=== PATIENT | male | born 1995 | race Caucasian/White ===

== ENCOUNTER 2023-06-23 18:29 | Inpatient (IN) ==
[2023-06-23] MEDS ORDERED: ACETAMINOPHEN 1,000 MG/100 ML VIAL IV STA (19:14)
--- NOTE | 2023-06-23 19:18 | Emergency Department Note ---
Impression & Plan Seizure-like activity ED Provider Note HISTORY OF PRESENT ILLNESS: Patient is a 27-year-old male presenting with seizure-like activity. Patient is from [place] and is visiting town for the [employer] game. He reportedly was sitting on a stool and started staring off while talking to family and then started drooling out of the right side of his mouth. Family was able to lower him to the ground and he started having tonic-clonic seizure-like activity that lasted for around 5 minutes. His seizure stopped on its own. Family at bedside reports he only sees once but then was postictal. He is not currently on any antiepileptic medications. His last seizure was 4 weeks ago. He is scheduled for his first neurology appointment next month. He denies any recent changes in medications. Denies any fevers in the last week. Denies any chest pain or shortness of breath. On arrival to the ER, he reports he feels back to his normal self. He does have a slight headache at this time. Patient was reportedly incontinent of urine during the episode ROS: as above PHYSICAL EXAM: Constitutional: Patient appears in no acute distress. HENT: Head: Normocephalic and atraumatic. Eyes: EOMI, PERRL Mouth/Throat: Mucous membranes moist. Neck: Trachea midline. Neck supple. Cardiovascular: RRR, No murmurs, rubs or gallops. Intact distal pulses. Pulmonary/Chest: No respiratory distress. Breath sounds clear and equal bilaterally. No wheezes or rales. Abdominal: Abdomen soft, no tenderness, rebound or guarding. Musculoskeletal: No edema, tenderness or deformity noted. Skin: Warm and dry. No rash, erythema, pallor or cyanosis Psychiatric: Appropriate mood and affect for situation. Neurological: Alert and keenly responsive. CN II-XII grossly intact, moving all extremities equally and fully. MDM: - Vitals signs stable. - History obtained via patient and patient's aunt at bedside. Patient presents with seizure-like activity. Patient is from out of town visiting for the [employer] game. He does have a previous seizure activity history and had a seizure last month. He is not currently on any antiseizure medications. He is scheduled for his first neurology clinic appointment next month. He reportedly started staring off and drooling out of his right side of his mouth and was lowered to the ground when he then had seizure-like activity per his aunt. He seized for around 5 minutes and then his seizure broke on its own. He has a history of polycystic kidney disease. No reported changes in medications. No drug use. No recent falls or head injuries. On arrival to the ER, the patient is back to his baseline. He does not remember his seizure-like activity. - Chronic conditions affecting care: Seizures - Differential diagnoses include, but are not limited to: Electrolyte abnormality; intracranial hemorrhage; dysrhythmia; UTI; drug use - Order placed for continuous cardiac monitoring. At this time, monitor showed rate of 100 bpm with normal sinus rhythm, per my interpretation. - External medical records reviewed. EMS run sheet was reviewed. Patient was not given any medications prehospital. Fingerstick glucose was 103 for EMS - EKG reviewed by myself showed normal sinus rhythm. Rate 94 bpm. QTc 432. No acute ischemic changes. - Laboratory workup interpreted by myself showed normal WBC; stable electrolytes; elevated anion gap (15); normal troponin; negative alcohol - CXR negative for pneumonia, per my interpretation - While in the emergency department waiting for work-up, the patient did have a witnessed tonic-clonic seizure. He was given 2 mg of IV Ativan. He did appear to bite his tongue and had bloody drool from the left side of his mouth. He was taken to CT scan, where he then had another reported seizure and was given 1 mg of IV Ativan. - CT head wo contrast negative for intracranial hemorrhage, per my interpretation - Given patient's recurrent seizures in the ER, will admit to hospital for neurology consult and EEG. - Given 1g IV keppra in ER. - Discussion was had with clinical social worker about patient's case and need for admission - Hospitalist consulted for admission - [facility] ASSESSMENT AND PLAN: Diagnosis: Seizure-like activity Plan: Admit Past Med/Surg History Social History Smoking Status: Current every day smoker Tobacco Type: E-cigarettes / Vaping Preferred Language: Polish Feels Safe at Home: Yes Results & Data (ED) Vital Signs Vital Signs - 24 hr 06/23/23 18:39 06/23/23 18:39 06/23/23 18:39 Temperature 36.7 C Temperature Source Oral Pulse Rate 99 H Respiratory Rate 14 Blood Pressure 125/78 Blood Pressure Mean 93 Pulse Oximetry 96 Oxygen Delivery Method Room Air Room Air Room Air Sepsis New/Unexplained Change in Mental Status No Sepsis Action Taken by Nursing No Action Required 06/23/23 18:39 Temperature Temperature Source Pulse Rate 108 H Respiratory Rate Blood Pressure Blood Pressure Mean Pulse Oximetry Oxygen Delivery Method Sepsis New/Unexplained Change in Mental Status Sepsis Action Taken by Nursing Laboratory Data 06/23/23 18:41 06/23/23 18:41 Lab Results 06/23/23 06/23/23 06/23/23 Range/Units 18:41 19:49 20:01 WBC 10.00 (4.8-10.8) K/ul RBC 4.78 (4.70-6.10) M/uL Hgb 14.7 (14.0-18.0) g/dl Hct 42.2 (42.0-52.0) % MCV 88.3 (80.0-100.0) fL MCH 30.8 (25.0-34.0) pg MCHC 34.8 (32.0-36.0) g/dL RDW Std Deviation 37.2 (36.4-46.3) fL RDW Coeff of Jose 11.4 L (11.5-14.5) % Plt Count 213 (130-400) K/uL MPV 10.3 (9.4-12.4) fL Immature Gran % (Auto) 1.0 % Neut % (Auto) 88.6 % Lymph % (Auto) 6.3 % Roosevelt % (Auto) 3.3 % Eos % (Auto) 0.1 % Baso % (Auto) 0.7 % Neut # (Auto) 8.86 H (1.40-6.50) K/uL Lymph # (Auto) 0.63 L (1.20-3.40) K/uL Roosevelt # (Auto) 0.33 (0.11-0.59) K/uL Eos # (Auto) 0.01 (0.00-0.50) K/uL Baso # (Auto) 0.07 (0.00-0.20) K/uL Immature Gran # (Auto) 0.10 (0.01-0.20) K/uL PT 12.1 H (9.0-12.0) Seconds INR 1.1 (0.9-1.1) Sodium 139 (136-145) mmol/L Potassium 4.0 (3.5-5.1) mmol/L Chloride 102 (98-107) mmol/L Carbon Dioxide 22 (21-32) mmol/L Anion Gap 15 H (3-11) BUN 11 (6-23) mg/dl Creatinine 1.32 (0.6-1.4) mg/dl Est Cr Clr Drug Dosing 97.0 ml/min Est GFR ( Amer) 86.3 ml/min Est GFR (Non-Af Amer) 74.5 ml/min BUN/Creatinine Ratio 8.3 L (10-20) Glucose 111 H (70-99(Fasting)) mg/dl POC Glucose 126 H (70-99) mg/dl Calcium 9.8 (8.6-10.3) mg/dl Magnesium 2.9 H (1.7-2.4) mg/dl Total Bilirubin 0.7 (0.2-1.0) mg/dl AST 26 (13-39) U/L ALT 12 (7-52) U/L Alkaline Phosphatase 69 (34-104) U/L Total Creatine Kinase 221 (30-223) U/L Troponin I High Sens 2.7 (0-20) pg/ml Total Protein 8.0 (6.0-8.3) gm/dl Albumin 4.9 (3.4-5.0) gm/dl Globulin 3.1 (2.5-4.0) gm/dl Albumin/Globulin Ratio 1.6 (0.9-2) Ethyl Alcohol mg/dL < 10.0 (<10.0) mg/dl Administered Medications Discontinued Medications Acetaminophen (Ofirmev) 1,000 mg in 100 mls @ 400 mls/hr IV NOW STA Stop: 06/23/23 19:28 Last Infusion: 06/23/23 20:00 Dose: Infused Documented By: Admin: 06/23/23 19:22 Dose: 400 mls/hr Documented By: KRISTOPHER Levetiracetam 1,000 mg/ Sodium (Chloride) 110 mls @ 440 mls/hr IV NOW STA Stop: 06/23/23 19:37 Last Admin: 06/23/23 19:56 Dose: 440 mls/hr Documented By: Lorazepam (Lorazepam 1 Mg/1 Ml Syr Ed Inj Use) Confirm Administered Dose 2 mg .ROUTE .STK-MED ONE Stop: 06/23/23 19:46 Last Admin: 06/23/23 19:45 Dose: 2 mg Documented By: Lorazepam (Lorazepam 1 Mg/1 Ml Syr Ed Inj Use) Confirm Administered Dose 1 mg .ROUTE .STK-MED ONE Stop: 06/23/23 20:20 Last Admin: 06/23/23 20:19 Dose: 1 mg Documented By: Discharge Plan Visit Data Chief Complaint: Seizure Stated Complaint: SEIZURES, POSTICTAL, HEADACHE ED Provider: Loretta Vickers Discharge Problem: Seizure-like activity Forms Stand Alone Forms: [facility] Referrals Referrals: PCP,NO [Primary Care Provider] -
[2023-06-23 19:19] LABS: Basophils # (auto) 0.07 K/uL (0.00-0.20); Basophils % (auto) 0.7 %; Eosinophils # (auto) 0.01 K/uL (0.00-0.50); Eosinophils % (auto) 0.1 %; Hematocrit (blood only) 42.2 % (42.0-52.0); Hemoglobin 14.7 g/dl (14.0-18.0); Lymphocytes # (auto) 0.63 K/uL (1.20-3.40); Lymphocytes % (auto) 6.3 %; Mean Corpuscular Hemoglobin 30.8 pg (25.0-34.0); Mean Corpuscular Hgb Conc 34.8 g/dL (32.0-36.0); Mean Corpuscular Volume 88.3 fL (80.0-100.0); Mean Platelet Volume 10.3 fL (9.4-12.4); Monocytes # (auto) 0.33 K/uL (0.11-0.59); Monocytes % (auto) 3.3 %; Neutrophils # (auto) 8.86 K/uL (1.40-6.50); Neutrophils % (auto) 88.6 %; Platelet Count 213 K/uL (130-400); RDW Coefficient of Variation 11.4 % (11.5-14.5); RDW Standard Deviation 37.2 fL (36.4-46.3); Red Blood Count 4.78 M/uL (4.70-6.10)
[2023-06-23] MEDS ORDERED: levETIRAcetam 1,000 MG in 0.9 % SODIUM CHLORIDE 100 ML IV STA (19:23)
[2023-06-23 19:33] LABS: Albumin Globulin Ratio 1.6 (0.9-2); Albumin Level 4.9 gm/dl (3.4-5.0); BUN Creatinine Ratio 8.3 (10-20); Bilirubin,Total 0.7 mg/dl (0.2-1.0); Calcium 9.8 mg/dl (8.6-10.3); Est GFR (African American) 86.3 ml/min; Est GFR (Non-African American) 74.5 ml/min; Globulin 3.1 gm/dl (2.5-4.0); Magnesium 2.9 mg/dl (1.7-2.4)
[2023-06-23 19:38] LABS: Troponin I High Sensitivity 2.7 pg/ml (0-20)
[2023-06-23] MEDS ORDERED: LORazepam 1 MG/1 ML SYR ED Inj Use ONE ×2 (19:45→20:19)
[2023-06-23 19:46] LABS: INR 1.1 (0.9-1.1); Prothrombin Time 12.1 Seconds (9.0-12.0)
--- NOTE | 2023-06-23 21:50 | History & Physical Report ---
Date of Service June 23, 2023 Assessment & Plan (1) Seizure-like activity: Plan: -History of seizure disorder since 10/2022 previously on Keppra with noted seizure 1 month prior and 3x generalized tonic clonic seizures today -Head CT negative -No significant electrolyte abnormalities or recent precipitants which may account for seizure though with discontinuation of previous Keppra (unknown date), this may be contributory -Recommend contacting pt's neurologist in [place] once further history obtainable from pt/family who will come from [place] -Some concern for mild dehydration- we will provide fluid repletion at maintenance -S/p Keppra 1000 mg IV -Will continue Keppra 500 mg IV BID for now -UA, UDS pending -Keppra level in AM -TSH ordered -EEG ordered -MRI seizure ordered- will be done in AM given pt reportedly did not tolerate CT well and has history of TING 2/2 contrast nephropathy in past -Neurology consult placed (2) Altered mental status: Plan: -Likely secondary to 3x seizures today with post-ictal states + 3 mg IV Ativan administration total in ER -Deferring further workup for now (3) Tachycardia: Plan: -Sinus tachycardia 100s-120s since in ER -Likely physiologic stress tachycardia from recent seizures -Telemetry monitoring (4) Hypertension: Plan: -BP stable at present -Holding lisinopril for now, resume pending pt's improvement in mental status (5) Polycystic kidney disease: Plan: -Noted history, unknown if autosomal dominant or recessive (6) Hyperglycemia: Plan: -Likely stress hyperglycemia from seizures -Monitor, no need for treatment at present (7) Hypermagnesemia: Plan: -Mg 2.9 on admission -Low suspicion that this is belying his seizure or somnolence given no other reported signs of magnesium toxicity and minimally elevated Mg -Trend in AM, deferring treatment for now (8) Depression: Plan: -Noted history of such but unclear which antidepressant he was taking and if this may have lowered his seizure threshold -To clarify in AM with pt/family Plan ADI: NPO pending mental status Code status: Full DVT prophylaxis: Low-risk Isolation: None Unit: Medical/surgical with telemetry Disposition planning: Anticipate home History of Present Illness Chief Complaint: Seizure Primary Care Provider: NO PCP Pt is 27 yo M with PMH polycystic kidney disease, HTN, seizure disorder presenting with seizure. History provided by aunt at bedside as pt was sleeping on evaluation. Pt reportedly had first seizure in 10/2022 (generalized tonic clonic) and was started on Keppra by his neurologist in [place] but was later taken off this medication but unknown when. He also stopped taking his antidepressant but similarly unknown what/when discontinued. He had another generalized tonic clonic seizure 4 weeks prior. Pt is visiting town for football game and around 6 PM on 06/23, family noticed him suddenly staring off into space mid-conversation followed by drooling from mouth. He was lowered to ground and subsequently had tonic clonic seizure like activity for 5 minutes, associated urinary incontinence, with self-resolution and postictal state for several minutes. He was later brought to ER and reported feeling back to baseline aside from headache but could not recall his seizure. Pt arrived to ER with HR 100s-130s. Initial evaluation significant for Mg 2.9, mild hyperglycemia 126, negative CXR, negative head CT. Pt did have another witnessed seizure in ER with tongue biting/drooling and given 2 mg IV Ativan, followed by another seizure at CT scan for which he received 1 mg IV Ativan. Also received Keppra 1000 mg IV, Tylenol 1000 mg IV for headache. Pt sleeping during my evaluation. Aunt at bedside reports pt has not had any recent illnesses, changes in medication, injuries, though apparently his mother is concerned pt may be using illicit substances. Allergies Allergy/AdvReac Type Severity Reaction Status Date / Time Penicillins Allergy Unknown Unknown Verified 06/23/23 21:30 Home Medications Medication Instructions Recorded Confirmed Type lisinopril 10 mg tablet 10 mg PO DAILY 06/23/23 06/23/23 History levetiracetam 500 mg tablet 500 mg PO BID #60 tabs 06/24/23 Rx (Keppra) Past Med/Surg History Medical History (Updated 06/24/23 @ 17:01 by Una Garcia MD) Depression Polycystic kidney disease Social History (Updated 06/24/23 @ 09:04 by Chung Donis MD) Smoking Status: Current every day smoker Tobacco Type: E-cigarettes / Vaping Hx Alcohol Use: Yes Alcohol type: beer Hx Substance Use: Yes Preferred Language: Liberian Office Director Required: No Beliefs That Will Affect Care: None Current Living Situation: Alone Current Living Situation Comment: lives alone in [place] current occupational status: employed 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 [employer] Feels Safe at Home: Yes Assistive Devices: None Review of Systems Review of Systems: Per HPI/Subjective Physical Exam Physical Exam: General: sleeping comfortably, no acute distress HEENT: moist mucous membranes Neck: supple, trachea midline, no thyromegaly, no JVD, no cervical lymphadenopathy CV: RRR, normal S1 and S2, no murmurs Resp: CTAB, no increased work of breathing, no crackles or wheezes Abd: Soft, nontender, nondistended, no guarding or rebound, no hepatosplenomegaly MSK: Normal bulk of all four extremities Neuro: sleeping on evaluation Skin: no rashes or lesions, warm and dry Ext: no LE peripheral edema or erythema, capillary refill <2s in all four extremities, 2+ LE peripheral pulses b/l Results & Data Results & Data Vital Signs (Past 12 Hours) Vital Signs Temp Pulse Resp BP Pulse Ox O2 Del Method 06/23/23 18:39 108 H 06/23/23 18:39 Room Air 06/23/23 18:39 Room Air 06/23/23 18:39 36.7 C 99 H 14 125/78 96 Room Air Supervising Physician Co-Signing Physician Notes Attending addendum: I have physically seen this patient, have supervised the medical residents activities, and agree with the H&P unless as otherwise noted. Assessment and Plan: Seizure-like activity/history of seizure disorder Previously on Keppra CT head negative Status post Keppra 1000 mg IV loading dose in the ED Keppra 500 mg IV twice daily Order MRI of brain seizure protocol Order EEG Consult to neurology No obvious signs of infection or other precipitating metabolic abnormality Hypertension/polycystic kidney disease- Holding lisinopril for now Laboratories pointing toward mild dehydration IV fluids as noted Remaining orders and notations as noted Resident Activity Tracking Resident Involvement: Resident Care Provided Care Provided: Adult Hospital Medicine
--- NOTE | 2023-06-23 21:57 | CT Scan Report ---
Exam(s): CT HEAD Without Contrast EXAM: CT Head Without Intravenous Contrast CLINICAL HISTORY: Reason for exam: seizure; hx of PCKD. TECHNIQUE: Axial computed tomography images of the head/brain without intravenous contrast. CTDI is 35.51 mGy and DLP is 625.8 mGy-cm. Automated exposure control was utilized for the study. A dose lowering technique was utilized adhering to the principles of ALARA. COMPARISON: No relevant prior studies available. FINDINGS: No acute intracranial hemorrhage. No midline shift or mass effect. The territorial st-white matter differentiation is maintained throughout. The ventricles and sulci are commensurate with age. The visualized orbits appear grossly unremarkable. The calvarium is intact. The visualized paranasal sinuses and mastoid air cells are grossly clear. IMPRESSION: No acute intracranial hemorrhage, midline shift, or mass effect. Electronically signed by: Ricky Cortes MD 06/23/23 21:56 PM
[2023-06-23] MEDS ORDERED: LACTATED RINGER'S 1,000 ML IV ONE (22:04)
[2023-06-23] MEDS ORDERED: LACTATED RINGER'S 1,000 ML IV SCH (22:30)
[2023-06-23] MEDS ORDERED: ACETAMINOPHEN 1,000 MG/100 ML VIAL IV PRN (23:15)
[2023-06-23] MEDS ORDERED: LORazepam 1 MG in SYRINGE 0.5 ML IV PRN (23:15)
[2023-06-24 06:46] LABS: Hematocrit (blood only) 40.8 % (42.0-52.0); Hemoglobin 14.3 g/dl (14.0-18.0); Mean Corpuscular Hemoglobin 30.4 pg (25.0-34.0); Mean Corpuscular Volume 86.8 fL (80.0-100.0); Mean Platelet Volume 10.3 fL (9.4-12.4); Platelet Count 194 K/uL (130-400); RDW Coefficient of Variation 11.5 % (11.5-14.5)
[2023-06-24] MEDS ORDERED: KETOROLAC TROMETHAMINE 15 MG/ML VIAL IV ONE (06:52)
--- NOTE | 2023-06-24 06:59 | Hospitalist Progress Note ---
Date of Service June 24, 2023 Assessment & Plan (1) Seizure-like activity: Plan: -History of seizure disorder since 10/2022 previously on Keppra with noted seizure 1 month prior and 3x generalized tonic clonic seizures today -Head CT negative -No significant electrolyte abnormalities or recent precipitants which may account for seizure though with discontinuation of previous Keppra (unknown date), this may be contributory -Recommend contacting pt's neurologist in [place] once further history obtainable from pt/family who will come from [place] -Some concern for mild dehydration- we will provide fluid repletion at maintenance -S/p Keppra 1000 mg IV -Will continue Keppra 500 mg IV BID for now -UA, UDS pending -Keppra level in AM -TSH ordered -EEG ordered -MRI seizure ordered- will be done in AM given pt reportedly did not tolerate CT well and has history of TING 2/2 contrast nephropathy in past -Neurology consult placed (2) Altered mental status: Plan: -Likely secondary to 3x seizures today with post-ictal states + 3 mg IV Ativan administration total in ER -Deferring further workup for now (3) Tachycardia: Plan: -Sinus tachycardia 100s-120s since in ER -Likely physiologic stress tachycardia from recent seizures -Telemetry monitoring (4) Hypertension: Plan: -BP stable at present -Holding lisinopril for now, resume pending pt's improvement in mental status (5) Polycystic kidney disease: Plan: -Noted history, unknown if autosomal dominant or recessive (6) Hyperglycemia: Plan: -Likely stress hyperglycemia from seizures -Monitor, no need for treatment at present (7) Hypermagnesemia: Plan: -Mg 2.9 on admission -Low suspicion that this is belying his seizure or somnolence given no other reported signs of magnesium toxicity and minimally elevated Mg -Trend in AM, deferring treatment for now (8) Depression: Plan: -Noted history of such but unclear which antidepressant he was taking and if this may have lowered his seizure threshold -To clarify in AM with pt/family Plan ADI: NPO pending mental status Code status: Full DVT prophylaxis: Low-risk Isolation: None Unit: Medical/surgical with telemetry Disposition planning: Anticipate home Admission and Anticipated Discharge Date Admission Date: June 23, 2023 Review of Systems Review of Systems: Per HPI/Subjective Physical Exam Physical Exam: General: sleeping comfortably, no acute distress HEENT: moist mucous membranes Neck: supple, trachea midline, no thyromegaly, no JVD, no cervical lymphadenopathy CV: RRR, normal S1 and S2, no murmurs Resp: CTAB, no increased work of breathing, no crackles or wheezes Abd: Soft, nontender, nondistended, no guarding or rebound, no hepatosplenome shanna MSK: Normal bulk of all four extremities Neuro: sleeping on evaluation Skin: no rashes or lesions, warm and dry Ext: no LE peripheral edema or erythema, capillary refill <2s in all four extremities, 2+ LE peripheral pulses b/l Results & Data Results & Data Vital Signs (Past 12 Hours) Vital Signs Temp Pulse Pulse Resp BP BP Pulse Ox 06/24/23 03:00 36.8 C 92 H 16 120/78 98 06/24/23 02:18 103 H 06/23/23 23:16 36.7 C 109 H 20 119/76 98 06/23/23 22:41 105 H 20 116/59 L 94 06/23/23 21:45 123 H 21 117/86 93 06/23/23 21:30 102 H 21 112/66 94 06/23/23 21:15 104 H 16 98/57 L 92 06/23/23 21:00 104 H 17 113/57 L 91 06/23/23 20:53 108 H 23 131/75 93 06/23/23 20:00 108 H 32 H 150/85 H 97 06/23/23 19:30 101 H 24 137/85 99 06/23/23 19:15 92 H 24 127/83 95 06/23/23 19:00 103 H 22 129/80 97 O2 Del Method 06/24/23 03:00 Room Air 06/24/23 02:18 06/23/23 23:16 Room Air 06/23/23 22:41 Room Air 06/23/23 21:45 06/23/23 21:30 06/23/23 21:15 06/23/23 21:00 06/23/23 20:53 06/23/23 20:00 06/23/23 19:30 06/23/23 19:15 06/23/23 19:00
[2023-06-24 07:05] LABS: BUN Creatinine Ratio 9.5 (10-20); Calcium 9.5 mg/dl (8.6-10.3); Creatinine Clr Calc Pharmacy 52.5 ml/min; Est GFR (Non-African American) 39.7 ml/min; Magnesium 2.9 mg/dl (1.7-2.4); Potassium 4.3 mmol/L (3.5-5.1)
[2023-06-24 07:17] LABS: Thyroid Stimulating Hormone 0.326 uIu/ml (0.300-4.500)
--- NOTE | 2023-06-24 07:26 | XRay Report ---
XR chest 1V portable CLINICAL HISTORY: Seizure. COMPARISON STUDY: No previous studies for comparison. FINDINGS: Lung volumes are normal. Lungs are clear. There is no pneumothorax or pleural effusion. Car diac size is normal. Mediastinal contours are normal. There is no evidence for pulmonary edema. IMPRESSION: No acute cardiopulmonary findings. ACT 112: Negative or not required by law. Electronically signed by: Wesley Traylor M.D. 06/24/2023 7:24 AM
[2023-06-24 07:46] LABS: Appearance Urine Clear (Clear); Bacteria Urine Automated Negative (Negative); Bilirubin Urine Negative (Negative); Blood Urine 1+ (Negative); Color Urine Yellow; Glucose Urine UA Negative (Negative); Ketones Urine Trace (Negative); Leukocyte Esterase Urine Negative (Negative); Nitrite Urine Negative (Negative); Protein Urine 1+ (Negative); RBC Urine Automated 0-4 /hpf (0-4); Specific Gravity Urine 1.011 (1.000-1.030); Urobilinogen Urine Negative (Negative)
[2023-06-24 08:14] LABS: Amphetamines+Metham, Urine Neg (Neg); Barbiturates, Urine Neg (Neg); Benzodiazepine, Urine Neg (Neg); Cocaine, Urine Neg (Neg); MDMA (Ecstacy), Urine Neg (Neg); Methadone, Urine Neg (Neg); Opiate, Urine Neg (Neg); Phencyclidine, Urine Neg (Neg)
[2023-06-24] MEDS ORDERED: ACETAMINOPHEN 325 MG TAB PO PRN (08:58)
[2023-06-24] MEDS ORDERED: levETIRAcetam 500 MG in 0.9 % SODIUM CHLORIDE 100 ML IV SCH (09:00)
[2023-06-24] MEDS ORDERED: ACETAMINOPHEN 325 MG TAB ONE (09:02)
--- NOTE | 2023-06-24 09:12 | Neurology Consultation ---
Date of Consultation June 24, 2023 Assessment & Plan (1) Recurrent seizures: (2) Depression: (3) Hypermagnesemia: Plan This patient has had generalized tonic-clonic seizure activity once in October of 2022 and 3 times, yesterday, June 23. In between he has been having staring spells followed by some brief confusion about once a month. He has the underlying tendency to have seizures of uncertain cause, and maybe genetic. Certainly, he lowers his seizure threshold with any ADHD or antidepressant medication but he is not been on that in the last few months. Sleep deprivation, lack of eating, excess caffeine use may also lower seizure thresholds. Currently, he has no focal findings, meningeal signs, or encephalopathy. He is a little sleepy from the Ativan use yesterday. Interestingly, his magnesium is somewhat high. He denies supplementing with magnesium. He has a GI issue which gave him considerable nausea vomiting and weight loss, earlier this year, but his GI system has been much better more recently. Apparently, GI evaluation did not identify any pathology. Recommendations: 1. Levetiracetam 500 mg p.o. b.i.d. 2. Awaiting MRI of the brain with and without contrast 3. EEG is not necessary as we are going to treat him on the current medication anyway. 4. Increase activity as able Overall, I spent a total of 90 minutes with this case including review of records, review of CT films, direct evaluation of the patient, report generati on, and discussion of the case with the patient, his parents, his Aunt , RN, and Dr. Garcia, including differential diagnosis and treatment options. History of Present Illness Reason for Consultation: Patient is a 27-year-old, who I was asked to see at the request of Dr Walters, for neurologic consultation regarding seizures. The patient's aunt and parents are present in the room to add to the history. Requesting Physician: Dr. Walters Attending Physician: Melvin Santos DO History of Present Illness This patient has a history of polycystic kidney disease on lisinopril. Over the last year so he is had some GI issues with a.m. nausea and vomiting and weight loss down to 145 lb. In addition, there have been some anxiety/depression issues and he has been on some anti anxiety and ADHD medication within the last year. In October of this year, had a generalized tonic-clonic seizure. There was some excessive caffeine usage associated and I am uncertain whether he was on fluoxetine at the time. Apparently he was evaluated in [place] ([facility]) where he was living and he had unremarkable lab testing, EEG, and MRI. He was put on levetiracetam 500 mg twice a day but did not take it regularly. He was on it about a month or so and then stopped (also at the advice of his family doctor). He was on Adderall and fluoxetine in the early summer of 2022 and then by mid to later summer he stopped all medication except the lisinopril. Since spring was having intermittent staring spells. These would occur about once a month and consist of sudden stopping of what he was saying or doing and staring for about 10 seconds or so followed by some grogginess for a minute or so. His most recent staring spell that he knows of was 3-4 weeks ago at noontime on a work day. He typically does not get any other aura or warning and just stares. He is disoriented for about a minute or so thereafter. The patient flew from [place] to [place] on June 22. He was not sleeping well and got up early on the . He had nothing to eat the entire day on the but he did have some water in the morning. Around noontime he got in the car to drive to [place]. He arrived around 330 in the afternoon and had a beer around 430. He went to his aunt's house where he was staying at 530 in the evening. The aunt states that around 6:00 p.m. the patient was sitting sipping water and then had a funny look and staring. His head tilted to the left and then drop to the right and he made a loud burping sound. He then threw his head back and made gurgling sounds and was laid back down on his sides. He had considerable stiffening and jerking of all 4 limbs lasting approximately 3-5 minutes. The activity ceased and he was quite groggy/unresponsive for a few minutes and was groggy for 15-20 minutes thereafter. He was drooling out the side of his mouth but there was no bleeding or incontinence. He arrived in the emergency room at 6:39 p.m. with a temperature of 36.7, pulse 99 and regular, blood pressure 125/78, O2 saturation 96%. Originally he was quite awake and alert with no issues when he arrived to the emergency room. CBC and Chem profile were unremarkable. Alcohol level was less than 10. CT scan of the head was unremarkable and chest x-ray was unremarkable. While in the emergency room about an hour after arriving, he had a generalized tonic-clonic seizure with tongue biting. He was given 2 mg of Ativan an hour later in the CT scanner he would a 3rd generalized tonic-clonic seizure. He was given 1 g of IV levetiracetam and another mg of Ativan. He is had no seizures since. This morning he has no complaint of pain or headache but he is sore all over in his muscles and joints. He is not dizzy and has no speech problems or c onfusion. He does feel tired/sleepy. Laboratory studies this morning revealed an elevated magnesium at 2.9. TSH, CBC, and Chem profile were otherwise unremarkable. There was positive marijuana in his tox screen which he states he gets from vaping. Allergies Allergy/AdvReac Type Severity Reaction Status Date / Time Penicillins Allergy Unknown Unknown Verified 06/23/23 21:30 Home Medications Medication Instructions Recorded Confirmed Type lisinopril 10 mg tablet 10 mg PO DAILY 06/23/23 06/23/23 History Patient History Medical History (Updated 06/24/23 @ 09:06 by Chung Donis MD) Depression Polycystic kidney disease Social History (Updated 06/24/23 @ 09:04 by Chung Donis MD) Smoking Status: Current every day smoker Tobacco Type: E-cigarettes / Vaping Hx Alcohol Use: Yes Alcohol type: beer Hx Substance Use: Yes Preferred Language: [employer] Required: No Beliefs That Will Affect Care: None Current Living Situation: Alone Current Living Situation Comment: lives alone in [place] current occupational status: employed 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 [employer] Feels Safe at Home: Yes Assistive Devices: None Review of Systems Constitutional: + fatigue; no fever and no weakness Eyes: no diplopia, no eye pain and no worsening vision Ear, Nose, Mouth, Throat: no ear pain, no tinnitus, no hearing loss, no dizziness, no snoring, no hoarseness and no dysphagia Respiratory: no cough and no dyspnea Cardiovascular: no chest pain, no palpitations and no lightheadedness Gastrointestinal: no abdominal pain, no nausea and no vomiting Musculoskeletal: + joint pain, + stiffness and + myalgia; no back pain, no neck pain and no radicular pain Integumentary: no rash and no lesions Neurologic: no gait abnormality, no localized weakness, no generalized weakne ss, no tingling, no numbness, no tremor(s), no abnormal movements, no headache(s), no abnormal speech, no confusion and no memory loss Psychiatric: no depression, no irritability, no anxiety, no difficulty concentrating, no confusion and no hallucinations Endocrine: no fatigue and no flushing Hematologic / Lymphatic: no easy bleeding and no easy bruising Allergy / Immunological: no urticaria and no problem reported Exam (Neuro) Physical Exam: The patient is right-handed. The patient is somewhat sleepy but otherwise easily arousable and eventually became awake, alert, and attentive. Speech is normal without any aphasia or dysarthria. The patient can name objects, repeat phrases, and has normal spontaneous speech. Mentation and thought processes are intact, with orientation to person, place and time, and normal fund of knowledge. Attention and concentration are normal. Mood and affect are normal and appropriate. General appearance and grooming are normal. Short and long-term memory are intact. Pupils are 4 mm bilaterally and reactive to light. Extraocular eye muscles are intact without nystagmus. Visual acuity and visual bates seem normal grossly to confrontation. There are no deficits to sensation in the face in all 3 distributions of the fifth cranial nerve bilaterally. Corneal reflexes are positive bilaterally. Facial strength and symmetry was normal bilaterally. Hearing seems normal bilaterally. Palate moves well without asymmetry. There is normal sternocleidomastoid and trapezius (shoulder shrug) strength bilaterally. Tongue is midline with good strength bilaterally. Neck has a full range of motion without discomfort. There are no cervical bruits bilaterally. There are no cranial or ocular bruits. Heart is without murmur. There is a regular rhythm and rate. Cervical, thoracic, and lumbar spine are nontender to palpation. Gait is narrow based, with good arm swing, turns, and stance. Balance is normal eyes open or closed. With outstretched arms there is no drift. There are no resting, postural, or action tremors. There is no ataxia with finger to nose testing. There is good facility in the hands. No other abnormal involuntary movements are noted. Motor strength is 5/5 diffusely in the arms bilaterally including deltoids, biceps, triceps, brachioradialis, wrist flexors and extensors, range aid, and intrinsic hand muscles. Motor strength is 5/5 diffusely in the legs bilaterally including hip flexors, quadriceps, hamstrings, gastrocnemius, tibialis anterior, tibialis posterior, and Peroneii muscles. Toe extensors are normal and there is good bulk in the extensor digitorum brevis muscles bilaterally. The limbs have good tone without rigidity or spasticity. There is no atrophy noted in the muscles. Muscle bulk is normal, there is no tenderness to palpation, no myotonia to percussion, and no fasciculations seen. Sensory examination is intact to touch and pin throughout all 4 limbs diffusely. Reflexes are 2/4 in the biceps, triceps, brachioradialis, quadriceps, and Achilles tendons bilaterally. There is no clonus bilaterally. Toes are downgoing with plantar stimulation bilaterally. Peripheral pulses are present and of normal quality distally in all 4 limbs. There is no peripheral edema noted in the limbs. Results & Data Vital Signs (Past 12 Hours) Vital Signs Temp Pulse Pulse Resp BP BP Pulse Ox 06/24/23 03:00 36.8 C 92 H 16 120/78 98 06/24/23 02:18 103 H 06/23/23 23:16 36.7 C 109 H 20 119/76 98 06/23/23 22:41 105 H 20 116/59 L 94 06/23/23 21:45 123 H 21 117/86 93 06/23/23 21:30 102 H 21 112/66 94 06/23/23 21:15 104 H 16 98/57 L 92 06/23/23 21:00 104 H 17 113/57 L 91 06/23/23 20:53 108 H 23 131/75 93 O2 Del Method 06/24/23 03:00 Room Air 06/24/23 02:18 06/23/23 23:16 Room Air 06/23/23 22:41 Room Air 06/23/23 21:45 06/23/23 21:30 06/23/23 21:15 06/23/23 21:00 06/23/23 20:53 PG Care Time/CCT Total # of Minutes Spent Total Time Spent with Patient: Total time spent is greater than 50% in coordination of care (as documented) at patient's floor/unit and/or counseling patient: Coding Level of Care Code 70129 IN/OBS CONSULT LVL 5,80M Diagnoses Recurrent seizures G40.909 Depression F32.A Hypermagnesemia E83.41 Time Spent (min) 90
[2023-06-24] MEDS ORDERED: GADOBUTROL 30ML VIAL IV ONE (09:52)
--- NOTE | 2023-06-24 10:13 | Magnetic Resonance Report ---
MRI OF THE BRAIN WITHOUT AND WITH IV CONTRAST SEIZURE PROTOCOL CLINICAL HISTORY: seizures x 3 COMPARISON STUDY: Head CT June 23, 2023. TECHNIQUE: Utilizing a 1.5 Harmony magnet and dedicated coil, multiplanar, multiecho imaging of the br ain was performed pre and postcontrast administration. IV administration of 8.6 mL of Gadavist contr ast was uneventful. Thin cut coronal T2 imaging was performed according to seizure protocol. FINDINGS: There are no foci of restricted diffusion to suggest acute infarct. No acute intracranial h emorrhage, midline shift or mass effect is present. This study is mildly compromised by motion artifa ct although is diagnostic. Brain volume is normal. Ventricular system is normal. Basal cisterns are p atent. There are no extra-axial collections. Flow-voids for the major intracranial vessels are presen t. There is no intracranial mass or pathologic enhancement. No parenchymal signal abnormality is iden tified. There is no evidence for mesial temporal sclerosis. There is asymmetric increased T2 signal a nd enhancement within the left aspect of the tongue. A few small mucous retention cysts within the ri ght maxillary sinus are present. There is no evidence for acute sinusitis. IMPRESSION: 1. Unremarkable MRI of the brain parenchyma. 2. Exam mildly compromised by motion artifact. 3. Asymmetric increased T2 signal and enhancement within the left aspect of the tongue. This could be due to tongue injury related to a seizure. ACT 112: Negative or not required by law. Electronically signed by: Wesley Tryalor M.D. 06/24/2023 10:11 AM
[2023-06-24] MEDS ORDERED: LACTATED RINGER'S 1,000 ML IV SCH (12:15)
--- NOTE | 2023-06-24 14:04 | Ultrasound Report ---
RENAL ULTRASOUND CLINICAL HISTORY: r/o obstructive TING COMPARISON STUDY: None. TECHNIQUE: Sonography of the kidneys and the urinary bladder was performed. FINDINGS: The right kidney measures 11.2 x 5 x 5.7 cm and the left kidney measures 12.2 x 5.4 x 7 cm. There is no hydronephrosis. A few right renal cysts measure up to 1.1 cm. Multiple left renal cysts measure up to 3.6 cm. These lesions are anechoic. Renal size is within normal limits. A few echogenic foci within the renal sinuses are noted. The largest is a 6 mm focus within the left renal sinus. Guille th ureteral jets were identified. IMPRESSION: 1. No hydronephrosis. 2. Multiple bilateral renal cysts which measure up to 3.6 cm. 3. Echogenic foci suggestive of calcifications, measuring up to 6 mm, within the bilateral renal sinu ses. These may reflect nonobstructing calculi or calcifications within cysts. ACT 112: Negative or not required by law. Electronically signed by: Wesley Traylor M.D. 06/24/2023 2:03 PM
[2023-06-24 16:32] LABS: Calcium 8.8 mg/dl (8.6-10.3); Creatinine Clr Calc Pharmacy 58.3 ml/min; Est GFR (African American) 52.2 ml/min; Potassium 3.3 mmol/L (3.5-5.1)
[2023-06-24] MEDS ORDERED: POTASSIUM CHLORIDE CRTAB 20 MEQ TABCR PO STA (16:36)
--- NOTE | 2023-06-24 17:26 | Discharge Summary ---
Date of Service June 24, 2023 Admission HPI Per Admitting Provider Pt is 27 yo M with PMH polycystic kidney disease, HTN, seizure disorder presenting with seizure. History provided by aunt at bedside as pt was sleeping on evaluation. Pt reportedly had first seizure in 10/2022 (generalized tonic clonic) and was started on Keppra by his neurologist in [place] but was later taken off this medication but unknown when. He also stopped taking his antidepressant but similarly unknown what/when discontinued. He had another generalized tonic clonic seizure 4 weeks prior. Pt is visiting [facility] for football game and around 6 PM on 06/23, family noticed him suddenly staring off into space mid-conversation followed by drooling from mouth. He was lowered to ground and subsequently had tonic clonic seizure like activity for 5 minutes, associated urinary incontinence, with self-resolution and postictal state for several minutes. He was later brought to ER and reported feeling back to baseline aside from headache but could not recall his seizure. Pt arrived to ER with HR 100s-130s. Initial evaluation significant for Mg 2.9, mild hyperglycemia 126, negative CXR, negative head CT. Pt did have another witnessed seizure in ER with tongue biting/drooling and given 2 mg IV Ativan, followed by another seizure at CT scan for which he received 1 mg IV Ativan. Also received Keppra 1000 mg IV, Tylenol 1000 mg IV for headache. Pt sleeping during my evaluation. Aunt at bedside reports pt has not had any recent illnesses, changes in medication, injuries, though apparently his mother is concerned pt may be using illicit substances. Admission Exam Per Admitting Provider General: sleeping comfortably, no acute distress HEENT: moist mucous membranes Neck: supple, trachea midline, no thyromegaly, no JVD, no cervical lymphadenopathy CV: RRR, normal S1 and S2, no murmurs Resp: CTAB, no increased work of breathing, no crackles or wheezes Abd: Soft, nontender, nondistended, no guarding or rebound, no hepatosplenome shanna MSK: Normal bulk of all four extremities Neuro: sleeping on evaluation Skin: no rashes or lesions, warm and dry Ext: no LE peripheral edema or erythema, capillary refill <2s in all four extremities, 2+ LE peripheral pulses b/l Principal Diagnosis seizures Discharge Exam General: sleeping comfortably, no acute distress HEENT: moist mucous membranes Neck: supple, trachea midline, no thyromegaly CV: RRR, normal S1 and S2, no murmurs Resp: CTAB, no increased work of breathing, no crackles or wheezes Abd: nondistended MSK: Normal bulk of all four extremities Neuro: alert and oriented Skin: no rashes or lesions, warm and dry Ext: no LE peripheral edema or erythema, capillary refill <2s in all four extremities, 2+ LE peripheral pulses b/l Discharge Data Allergies Allergy/AdvReac Type Severity Reaction Status Date / Time Penicillins Allergy Unknown Unknown Verified 06/23/23 21:30 Consultations 06/23/23 21:15 ED Decision to Admit Stat 06/23/23 23:15 Consult Neurology Routine Ordered Studies Chest X-Ray 06/23/23 18:53 XR chest 1V portable CLINICAL HISTORY: Seizure. COMPARISON STUDY: No previous studies for comparison. FINDINGS: Lung volumes are normal. Lungs are clear. There is no pneumothorax or pleural effusion. Cardiac size is normal. Mediastinal contours are normal. There is no evidence for pulmonary edema. IMPRESSION: No acute cardiopulmonary findings. Head CT 06/23/23 18:53 FINDINGS: No acute intracranial hemorrhage. No midline shift or mass effect. The territorial st-white matter differentiation is maintained throughout. The ventricles and sulci are commensurate with age. The visualized orbits appear grossly unremarkable. The calvarium is intact. The visualized paranasal sinuses and mastoid air cells are grossly clear. IMPRESSION: No acute intracranial hemorrhage, midline shift, or mass effect. Brain MRI 06/24/23 00:00 FINDINGS: There are no foci of restricted diffusion to suggest acute infarct. No acute intracranial hemorrhage, midline shift or mass effect is present. This study is mildly compromised by motion artifact although is diagnostic. Brain volume is normal. Ventricular system is normal. Basal cisterns are patent. There are no extra-axial collections. Flow-voids for the major intracranial vessels are present. There is no intracranial mass or pathologic enhancement. No parenchymal signal abnormality is identified. There is no evidence for mesial temporal sclerosis. There is asymmetric increased T2 signal and enhancement within the left aspect of the tongue. A few small mucous retention cysts within the right maxillary sinus are present. There is no evidence for acute sinusitis. IMPRESSION: 1. Unremarkable MRI of the brain parenchyma. 2. Exam mildly compromised by motion artifact. 3. Asymmetric increased T2 signal and enhancement within the left aspect of the tongue. This could be due to tongue injury related to a seizure. Renal Ultrasound 06/24/23 12:14 FINDINGS: The right kidney measures 11.2 x 5 x 5.7 cm and the left kidney measures 12.2 x 5.4 x 7 cm. There is no hydronephrosis. A few right renal cysts measure up to 1.1 cm. Multiple left renal cysts measure up to 3.6 cm. These lesions are anechoic. Renal size is within normal limits. A few echogenic foci within the renal sinuses are noted. The largest is a 6 mm focus within the left renal sinus. Both ureteral jets were identified. IMPRESSION: 1. No hydronephrosis. 2. Multiple bilateral renal cysts which measure up to 3.6 cm 3. Echogenic foci suggestive of calcifications, measuring up to 6 mm, within the bilateral renal sinuses. These may reflect nonobstructing calculi or calcifications within cysts. Hospital Course (1) Seizure-like activity: History of seizure disorder since 10/2022 previously on Keppra with noted seizure 1 month prior and 3x generalized tonic clonic seizures today. Patient with multiple staring spells over the last few months. History convincing for seizure disorder. MRI with no acute findings. CT Head negative. TSH WNL. UDS positive for marijuana, patient uses vape. Loaded with Keppra in the ED and started on 500 mg PO BID. Patient to follow up with neurologist outpatient. Case reviewed by neurologist Dr. Delvis Donis. See his documentation for further information. (2) Acute kidney injury: Cr 2.2. Likely pre-renal. No obstruction noted on US. FeNa 1.0%. Less likely intrarenal or ATN. Improved to 2.2 with IV hydration. Recommend at least 80 ounces of pedialyte/gatorade/water daily with repeat BMP Monday. Patient to follow up with PCP outpatient next week. Family and patient expressed understand. (3) Altered mental status: -Likely secondary to 3x seizures today with post-ictal states + 3 mg IV Ativan administration total in ER -Deferring further workup for now (4) Tachycardia: -Sinus tachycardia 100s-120s since in ER -Likely physiologic stress tachycardia from recent seizures -Telemetry monitoring (5) Hypertension: -BP stable at present -Holding lisinopril for now, resume pending pt's improvement in mental status (6) Polycystic kidney disease: -Noted history, unknown if autosomal dominant or recessive (7) Hyperglycemia: -Likely stress hyperglycemia from seizures -Monitor, no need for treatment at present (8) Hypermagnesemia: -Mg 2.9 on admission -Low suspicion that this is belying his seizure or somnolence given no other reported signs of magnesium toxicity and minimally elevated Mg -Trend in AM, deferring treatment for now (9) Depression: -Noted history of such but unclear which antidepressant he was taking and if this may have lowered his seizure threshold Total Time Total Time Spent Total Time Spent (In Minutes): <30 Discharge Plan Discharge Items Patient Disposition: Home - Self-Care Reason For Visit: SEIZURE Discharge Diagnosis: seizure Activity: Per Instructions section Non-emergency contact: Primary Care Provider and Neurologist Call non-emergency contact if: you have any medication questions and your symptoms worsen Follow-up/Referrals: PCP,NO [Primary Care Provider] - Diet: Regular Ambulatory Orders: Basic Metabolic Panel (Routine) Timeframe: 2 Days Location: Determined by Patient Ordered By: Una Radford Attending Provider Instructions: You were admitted to the hospital for seizures. This was likely in the setting of dehydration, lack of food, etc. Seizure activity stopped with medications. We started you on 500 mg Keppra, which you will need to take every 12 hours. You will need to follow up with a neurologist in the near future. You were also found to have abnormal kidney function. It did improve with IV fluids. There were no signs of obstruction in the urinary tract. Likely this is due to dehydration. I would recommend aggressive oral fluid intake. Please avoid any alcohol or caffeine to avoid further dehydration. You will need to have outpatient labs to recheck your kidney function either Monday or Monday. You will need to schedule an appointment with a primary care provider early next we ek to review these labs and have a hospital follow up. Please bring this discharge summary with you to your next office appointment so that your provider can review it at that time. Follow-up appointments: Make a follow-up appointment with your PCP within the next week. It is very important that you follow up with them shortly after discharge from the hospital. Medications: Your medication list has been reviewed and reconciled upon discharge to ensure accuracy and continuity of care. An updated list of all your medications is included with your hospital discharge paperwork. Please review this list closely, and make note of any changes. Take your medications as instructed; do not skip a dose of your medicines. Make sure all of your doctors know every medicine you are taking (including [id number] medicines, vitamins, and supplements). Call your primary care provider before taking any new medicines (including over- the- counter medicines, vitamins, and supplements), because some of these may interact with your current medications, or may make your symptoms worse. Tell your primary care provider if you cannot afford your medications. CONTACT YOUR PRIMARY CARE PROVIDER if you experience any of the following: decrease in urine output break through seizures Difficulty following your treatment plan, or difficulty taking medications CALL 911 OR GO TO THE EMERGENCY DEPARTMENT if you experience any of the following: Sudden, severe abdominal pain or nausea/vomiting Severe chest pain, or chest pain that radiates (moves) to your jaw or arm Sudden, severe shortness of breath or difficulty breathing Thank you for allowing us to participate in your care Pending Studies at Discharge: No Stand-Alone Forms: [facility] Follicum, Smoking Cessation Medications and DC Order Prescriptions: New levetiracetam [Keppra] 500 mg tablet 500 mg PO BID Qty: 60 1RF Continued lisinopril 10 mg Tablet 10 mg PO DAILY Discharge Orders: Discharge Order (Routine); Ordered 06/24/23 Ordered By: Una Garcia Admission Data Admit Date/Time: 06/23/23 21:49 Attending Provider: Melvin Santos Admit Provider: Robel Walters Primary Care Provider: PCP,NO Other Providers: Vazquez Aviles; Jayesh Beauchamp; Chung Donis; Mia Peterson; Sara Quinones; Ely Dubois; Angel Leonard Other Interventions: Discharge Summary Assessment (RN) Last Done: 06/24/23 17:24 Supervising Physician Co-Signing Physician Notes I personally examined the patient and verified all zavala points of history and exam, discussed case, and agree with decision making with Dr Garcia feeling better just sore and tired. Discussed seizures as well as TING. He and family expressed good understanding of both. Vitals noted, in general he is fatigued but otherwise awake and alert pleasant no distress. HEENT normocephalic atraumatic mucous membranes moist. Breathing unlabored no accessory muscle use good effort. Skin shows no rashes no pallor or icterus. Neuro without focal deficits. Labs and diagnostics reviewed. seizure - known seizure hx, resume kebroderickra, safe for home in this respect Acute renal insufficiency - Probably prerenal superimposed on unknown baseline with polycystic kidney diseasenothing appearing obstructive, he shows no symptoms. Discussed risks/benefits of keeping in the hospital on IV fluids into tomorrow, he understands the risks and benefits but very much would like to be discharged, is reliable is going to be with his family, and will drink 80-100 ounces of fluid a day and have repeat lab work on Monday. for home, otherwise as above Resident Activity Tracking Resident Involvement: Resident Care Provided Care Provided: Adult Hospital Medicine
[2023-06-24] MEDS ORDERED: levETIRAcetam 500 MG TAB PO ONE (17:46)
--- NOTE | 2023-06-24 18:31 | Billing Data ---
Date of Service June 24, 2023 Coding Level of Care Code 60390 IN/OBS DISCH 30 MIN/LESS
--- NOTE | 2023-06-24 18:32 | Billing Data ---
Date of Service June 24, 2023 Coding Level of Care Code 08358 IN/OBS DISCH 30 MIN/LESS
--- NOTE | 2023-06-24 20:02 | Billing Data ---
Date of Service June 24, 2023 Coding Level of Care Code 93038 INT INP/OBS CARE
--- NOTE | 2023-06-25 19:35 | Electrocardiogram Report ---
Test Reason : Blood Pressure : / mmHG Vent. Rate : 094 BPM Atrial Rate : 094 BPM P-R Int : 144 ms QRS Dur : 090 ms QT Int : 346 ms P-R-T Axes : 073 058 041 degrees QTc Int : 432 ms Normal sinus rhythm Normal ECG No previous ECGs available Confirmed by Baldo Benitez ([id number]) on 06/25/2023 7:35:10 PM Referred By: REFERRED SELF Confirmed By:Baldo Benitez
[2023-06-26 11:56] LABS: Marijuana Quant, GCMS Urine 545 ng/mL (<5)
== END 2023-06-24 18:09 | disposition home or self-care (01) | DRG 101 ==
LOC: ED 18:29 → 2S 21:49 → SUATTDRO 21:49 → 2S 22:41